=== PATIENT | female | born 1945 | race Caucasian/White ===

== ENCOUNTER 2017-09-15 08:42 | Outpatient (CLI) | payer MEDICARE, BC ==
[2017-09-15 09:21] LABS: BASOPHILS # (AUTO) 0.1 X10'3 (0-0.2); EOSINOPHILS # (AUTO) 0.1 X10'3 (0-0.9); EOSINOPHILS % (AUTO) 1.5 % (0-6); HEMATOCRIT 43.4 % (35.0-45.0); HEMOGLOBIN 14.8 g/dl (12.0-16.0); LYMPHOCYTES # (AUTO) 2.1 X10'3 (1.1-4.8); LYMPHOCYTES % (AUTO) 26.5 % (21-51); MEAN CORPUSCULAR HEMOGLOBIN 31.6 PG (27.0-31.0); MEAN CORPUSCULAR VOLUME 92.9 FL (78-98); MEAN PLATELET VOLUME 7.1 FL (7.4-10.4); MONOCYTES # (AUTO) 0.4 X10'3 (0-0.9); MONOCYTES % (AUTO) 5.6 % (2-12); NEUTROPHILS # (AUTO) 5.2 X10'3 (1.8-7.7); NEUTROPHILS % (AUTO) 65.4 % (42-75); PLATELET COUNT 350 X10'3 (140-440); RED BLOOD COUNT 4.67 X10'6 (4.20-5.60); WHITE BLOOD COUNT 7.9 X10'3 (4.5-11.0)
[2017-09-15 09:22] LABS: CLARITY,URINE CLEAR (Clear); COLOR,URINE YELLOW (Yellow); GLUCOSE, URINE NEGATIVE (Neg); KETONES,URINE NEGATIVE (Neg); LEUKOCYTE ESTERASE ,URINE NEGATIVE (Neg); NITRITES, URINE NEGATIVE (Neg); OCCULT BLOOD,URINE NEGATIVE (Neg); PH,URINE 6.5 (4.8-8.0); PROTEIN,URINE NEGATIVE (Neg); UROBILINOGEN,URINE 0.2 E.U/dL (0.2-1.0)
[2017-09-15 09:23] LABS: UA COLLECTION TYPE CLN CATCH MIDSTREAM
[2017-09-15 09:41] LABS: PROTHROMBIN TIME 10.2 SECONDS (9.0-12.0)
[2017-09-15 09:48] LABS: ALANINE AMINOTRANSFERASE 28 U/L (12-78); ALBUMIN 4.3 G/DL (3.4-5.0); ALBUMIN/GLOBULIN RATIO 1.2 (1.1-1.5); ALKALINE PHOSPHATASE 77 IU/L (46-116); ANION GAP 9 (8-16); ASPARTATE AMINO TRANSFERASE 19 U/L (10-37); BILIRUBIN,TOTAL 0.5 MG/DL (0.1-1.0); BLOOD UREA NITROGEN 14 MG/DL (7-18); BUN/CREATININE RATIO 22.6 (6.6-38.0); CHLORIDE 102 MMOL/L (99-107); CREATININE 0.62 MG/DL (0.40-0.90); GLUCOSE 100 MG/DL (70-104); SODIUM 139 MMOL/L (135-145); TOTAL CARBON DIOXIDE 28.5 MMOL/L (24-32); TOTAL PROTEIN 7.8 G/DL (6.4-8.2); eGFR > 90 ML/MIN
[2017-09-15 09:50] LABS: CALCIUM 9.4 MG/DL (8.5-10.1)
== END 2017-09-15 23:59 | disposition home or self-care (01) ==
LOC: LAB 08:42
PROVIDERS: ATTEND Specialist
DX: Z01.818 Encounter for other preprocedural examination (principal); Z51.81 Encounter for therapeutic drug level monitoring; N39.0 Urinary tract infection, site not specified
CPT/HCPCS: 36415; 80053; 81003; 85025; 85610; 87070

== ENCOUNTER 2017-09-29 05:25 | Inpatient (IN) | payer MEDICARE, BC ==
[2017-09-29] VITALS (18 sets, daily range): BP systolic 95–153; BP diastolic 46–65
[~2017-09-29] VITALS: Ht 160 cm; Wt 59.7 kg
[~2017-09-29 05:25] MED LIST: CALC-491 PO; CHOL10008 PO; CYAN100T12; DOCU-28 PO; ringers solution, lacted 1,000 ML IV SCH
[2017-09-29] MEDS ORDERED: oxyCODONE SR 10mg (sust. release) tab PO ONE (05:30)
[2017-09-29] MEDS ORDERED: famotidine 20mg tablet PO ONE (05:30)
[2017-09-29] MEDS ORDERED: tranexamic acid inj. 1,000 MG in normal saline 100ml IV soln 90 ML IV ONE (05:30)
[2017-09-29] MEDS ORDERED: cefazolin/dext.iso 2gm/50ml 100 ML IV ONE (05:30)
[2017-09-29] MEDS ORDERED: gabapentin 300mg capsule PO ONE (05:30)
[2017-09-29] MEDS ORDERED: LIDOcaine 1% (10mg/ml) 2ml vial ONE (06:27)
[2017-09-29] MEDS ORDERED: ROPIVAcaine 0.5% (5mg/ml) 30ml vial ONE (06:33)
[2017-09-29] MEDS ORDERED: bacitracin inj 150,000 UNIT in sodium chloride irrig. sol 3,000 ML IR ONE (07:00)
[2017-09-29] MEDS ORDERED: BUPIVAcaine/PF 7.5mg/ml (0.75%) 10ml vial ONE (07:19)
[2017-09-29] MEDS ORDERED: midazolam 2 mg/2 ml injection ONE ×2 (07:21→07:22)
[2017-09-29] MEDS ORDERED: fentaNYL/PF 50MCG/1 ML 2ML syringe ONE (07:21)
[2017-09-29] MEDS ORDERED: MORPHINE SULFATE/PF 0.5 MG/ML 10ML AMPUL ONE (07:21)
[2017-09-29] MEDS ORDERED: propofol inj 20 ML IV ONE (07:38)
[2017-09-29] MEDS ORDERED: LIDOcaine 2% (20mg/ml) 5ml vial ONE (07:38)
[2017-09-29] MEDS ORDERED: ringers solution, lacted 1,000 ML IV SCH (08:16)
[2017-09-29] MEDS ORDERED: naloxone 2mg/2ml inj 1.2 MG in normal saline 500ml IV soln 500 ML IV PRN (08:16)
[2017-09-29] MEDS ORDERED: morphine 2 MG/ML inj. syringe IV PRN (08:20)
[2017-09-29] MEDS ORDERED: HYDROmorphone 1 mg/ml syringe IV PRN ×2 (08:20→09:30)
[2017-09-29] MEDS ORDERED: ondansetron/PF 4mg/2ml inj IV PRN ×3 (08:20→09:30)
[2017-09-29] MEDS ORDERED: diphenhydrAMINE 50 mg/ml inj IV PRN (08:20)
[2017-09-29] MEDS ORDERED: phenylephrine 10mg/ml inj IV ONE (08:51)
[2017-09-29] MEDS ORDERED: ePHEDrine 50MG/ML INJ. ONE (08:51)
[2017-09-29] MEDS ORDERED: magnesium hydroxide 30ml (MOM) UD suspension PO PRN (09:30)
[2017-09-29] MEDS ORDERED: diphenhydrAMINE 25mg capsule PO PRN ×2 (09:30)
[2017-09-29] MEDS ORDERED: bisacodyl 10mg suppository rectal RC PRN (09:30)
[2017-09-29] MEDS ORDERED: oxyCODONE IR 5mg (immed. release) tablet PO PRN (09:30)
[2017-09-29] MEDS: gabapentin 300mg capsule PO SCH ×2 (12:58→20:58)
[2017-09-29] MEDS: potassium cl 20mEq in 1/2 NS 1,000 ML IV SCH ×3 (12:59→21:00)
[2017-09-29] MEDS: oxyCODONE IR 5mg (immed. release) tablet PO PRN (14:59)
[2017-09-29] MEDS: cefazolin 1gm/NS 100mL 100 ML IV SCH (16:17)
[2017-09-29] MEDS: lactobacillus rhamnosus 10,000 MMU CELLS/CAPSULE PO SCH (18:07)
[2017-09-29] MEDS: ascorbic acid 500mg tablet PO SCH (20:59)
[2017-09-29] MEDS: celeCOXIB 100mg capsule PO SCH (20:59)
[2017-09-29] MEDS: sennosides 8.6mg tablet PO SCH (20:59)
[2017-09-30] MEDS: cefazolin 1gm/NS 100mL 100 ML IV SCH (00:26)
[2017-09-30 03:20] VITALS: BP 108/56
[2017-09-30] MEDS: oxyCODONE IR 5mg (immed. release) tablet PO PRN ×3 (04:07→16:13)
[2017-09-30] MEDS: potassium cl 20mEq in 1/2 NS 1,000 ML IV SCH ×2 (04:11→17:27)
[2017-09-30 06:43] LABS: BASOPHILS % (AUTO) 0.5 % (0-1); EOSINOPHILS # (AUTO) 0.2 X10'3 (0-0.9); EOSINOPHILS % (AUTO) 2.1 % (0-6); HEMATOCRIT 34.9 % (35.0-45.0); LYMPHOCYTES # (AUTO) 1.4 X10'3 (1.1-4.8); LYMPHOCYTES % (AUTO) 18.2 % (21-51); MEAN CORPUSCULAR HEMOGLOBIN 31.4 PG (27.0-31.0); MEAN CORPUSCULAR HGB CONC 34.3 % (33.0-36.5); MEAN CORPUSCULAR VOLUME 91.4 FL (78-98); MEAN PLATELET VOLUME 6.9 FL (7.4-10.4); MONOCYTES # (AUTO) 0.7 X10'3 (0-0.9); MONOCYTES % (AUTO) 8.6 % (2-12); NEUTROPHILS # (AUTO) 5.6 X10'3 (1.8-7.7); NEUTROPHILS % (AUTO) 70.6 % (42-75); PLATELET COUNT 211 X10'3 (140-440); RED BLOOD COUNT 3.82 X10'6 (4.20-5.60); WHITE BLOOD COUNT 7.9 X10'3 (4.5-11.0)
[2017-09-30 06:45] VITALS: BP 116/59
[2017-09-30 06:53] LABS: INR 1.5 INR; PROTHROMBIN TIME 15.1 SECONDS (9.0-12.0)
[2017-09-30 06:54] LABS: ANION GAP 6 (8-16); CHLORIDE 97 MMOL/L (99-107); POTASSIUM 4.1 MMOL/L (3.5-5.1); SODIUM 130 MMOL/L (135-145); TOTAL CARBON DIOXIDE 27.5 MMOL/L (24-32)
[2017-09-30] MEDS ORDERED: warfarin 3mg tablet PO ONE (07:00)
[2017-09-30] MEDS: docusate sod 100mg capsule PO SCH (07:44)
[2017-09-30] MEDS: celeCOXIB 100mg capsule PO SCH ×2 (07:44→20:17)
[2017-09-30] MEDS: lactobacillus rhamnosus 10,000 MMU CELLS/CAPSULE PO SCH ×2 (07:44→17:49)
[2017-09-30] MEDS: ascorbic acid 500mg tablet PO SCH ×2 (07:45→20:17)
[2017-09-30] MEDS: multivitamins, therapeutics tablet PO SCH (07:45)
[2017-09-30] MEDS: gabapentin 300mg capsule PO SCH ×3 (07:47→20:18)
[2017-09-30 11:00] VITALS: BP 138/57
[2017-09-30 14:57] VITALS: BP 125/58
[2017-09-30 18:00] VITALS: BP 121/56
[2017-09-30] MEDS: sennosides 8.6mg tablet PO SCH (20:18)
[2017-09-30 22:00] VITALS: BP 122/56
[2017-10-01] MEDS: potassium cl 20mEq in 1/2 NS 1,000 ML IV SCH (01:27)
[2017-10-01] MEDS: oxyCODONE IR 5mg (immed. release) tablet PO PRN ×4 (02:26→17:05)
[2017-10-01 05:00] VITALS: BP 132/64
[2017-10-01 06:32] LABS: BASOPHILS % (AUTO) 0.4 % (0-1); EOSINOPHILS # (AUTO) 0.2 X10'3 (0-0.9); EOSINOPHILS % (AUTO) 2.1 % (0-6); HEMATOCRIT 35.7 % (35.0-45.0); HEMOGLOBIN 12.6 g/dl (12.0-16.0); LYMPHOCYTES # (AUTO) 1.6 X10'3 (1.1-4.8); LYMPHOCYTES % (AUTO) 18.9 % (21-51); MEAN CORPUSCULAR HGB CONC 35.4 % (33.0-36.5); MEAN CORPUSCULAR VOLUME 90.6 FL (78-98); MEAN PLATELET VOLUME 7.2 FL (7.4-10.4); MONOCYTES # (AUTO) 0.7 X10'3 (0-0.9); NEUTROPHILS % (AUTO) 70.6 % (42-75); PLATELET COUNT 222 X10'3 (140-440); RED BLOOD COUNT 3.94 X10'6 (4.20-5.60); RED CELL DISTRIBUTION WIDTH 13.4 % (11.5-14.5); WHITE BLOOD COUNT 8.5 X10'3 (4.5-11.0)
[2017-10-01 06:45] LABS: INR 1.4 INR; PROTHROMBIN TIME 14.4 SECONDS (9.0-12.0)
[2017-10-01] MEDS: lactobacillus rhamnosus 10,000 MMU CELLS/CAPSULE PO SCH ×2 (07:35→17:05)
[2017-10-01] MEDS: multivitamins, therapeutics tablet PO SCH (07:36)
[2017-10-01] MEDS: docusate sod 100mg capsule PO SCH (07:36)
[2017-10-01] MEDS: gabapentin 300mg capsule PO SCH ×3 (07:36→20:10)
[2017-10-01] MEDS: celeCOXIB 100mg capsule PO SCH ×2 (07:36→20:10)
[2017-10-01] MEDS: ascorbic acid 500mg tablet PO SCH ×2 (07:36→20:10)
[2017-10-01 10:00] VITALS: BP 100/51
[2017-10-01] MEDS ORDERED: warfarin 5mg tablet PO ONE (10:00)
[2017-10-01 18:00] VITALS: BP 132/59
[2017-10-01] MEDS: sennosides 8.6mg tablet PO SCH (20:10)
[2017-10-01 22:00] VITALS: BP 120/67
[2017-10-02 05:00] VITALS: BP 123/60
[2017-10-02] MEDS: oxyCODONE IR 5mg (immed. release) tablet PO PRN ×2 (06:21→10:33)
[2017-10-02 06:29] LABS: BASOPHILS % (AUTO) 0.2 % (0-1); EOSINOPHILS # (AUTO) 0.2 X10'3 (0-0.9); EOSINOPHILS % (AUTO) 2.6 % (0-6); HEMATOCRIT 34.5 % (35.0-45.0); HEMOGLOBIN 12.1 g/dl (12.0-16.0); LYMPHOCYTES # (AUTO) 1.3 X10'3 (1.1-4.8); LYMPHOCYTES % (AUTO) 14.2 % (21-51); MEAN CORPUSCULAR HGB CONC 35.1 % (33.0-36.5); MEAN CORPUSCULAR VOLUME 91.1 FL (78-98); MEAN PLATELET VOLUME 7.4 FL (7.4-10.4); MONOCYTES # (AUTO) 0.8 X10'3 (0-0.9); MONOCYTES % (AUTO) 8.4 % (2-12); NEUTROPHILS # (AUTO) 6.7 X10'3 (1.8-7.7); NEUTROPHILS % (AUTO) 74.6 % (42-75); PLATELET COUNT 229 X10'3 (140-440); RED BLOOD COUNT 3.78 X10'6 (4.20-5.60); RED CELL DISTRIBUTION WIDTH 13.1 % (11.5-14.5)
[2017-10-02 06:40] LABS: INR 1.6 INR; PROTHROMBIN TIME 16.7 SECONDS (9.0-12.0)
[2017-10-02] MEDS ORDERED: warfarin 3mg tablet PO ONE (07:40)
[2017-10-02] MEDS ORDERED: ASPI-1264 PO (07:42)
[2017-10-02] MEDS ORDERED: WALKERFR (07:42)
[2017-10-02] MEDS: lactobacillus rhamnosus 10,000 MMU CELLS/CAPSULE PO SCH (08:03)
[2017-10-02] MEDS: multivitamins, therapeutics tablet PO SCH (08:04)
[2017-10-02] MEDS: ascorbic acid 500mg tablet PO SCH (08:04)
[2017-10-02] MEDS: gabapentin 300mg capsule PO SCH (08:04)
[2017-10-02] MEDS: docusate sod 100mg capsule PO SCH (08:04)
[2017-10-02] MEDS: celeCOXIB 100mg capsule PO SCH (08:04)
== END 2017-10-02 10:50 | disposition home health service (06) | DRG 470 ==
LOC: PAS IN 05:25 → EDSTATUS 07:30 → ORTHO 4S 10:30
PROVIDERS: ADMIT Specialist; ATTEND Specialist
PROC: 0SRB02Z Replacement of Left Hip Joint with Metal on Polyethylene Synthetic Substitute, Open Approach (ICD-10-PCS; principal; 2017-09-29 07:16)
DX: M16.12 Unilateral primary osteoarthritis, left hip (principal); Q65.89 Other specified congenital deformities of hip; Z88.6 Allergy status to analgesic agent; Z90.710 Acquired absence of both cervix and uterus
CPT/HCPCS: 36415; 73502; 80051; 85025; 85610; 86885; 86900; 86901; 97110; 97116; 97162; 97530; A4565; A6253; A6449; A6455; A7000; C1758; C1776; J0690; J2001; J2250; J2274; J2370; J2704; J2795; J3010; J3490; J7030; J7120

== ENCOUNTER 2018-09-21 05:11 | Inpatient (IN) | payer MEDICARE, BC ==
[2018-09-09 12:40] LABS: BASOPHILS # (AUTO) 0.1 X10'3 (0-0.2); BASOPHILS % (AUTO) 0.7 % (0-1); EOSINOPHILS # (AUTO) 0.1 X10'3 (0-0.9); EOSINOPHILS % (AUTO) 1.2 % (0-6); LYMPHOCYTES % (AUTO) 25.4 % (21-51); MEAN CORPUSCULAR HEMOGLOBIN 31.3 PG (27.0-31.0); MEAN CORPUSCULAR HGB CONC 33.3 % (33.0-36.5); MEAN CORPUSCULAR VOLUME 93.9 FL (78-98); MEAN PLATELET VOLUME 7.5 FL (7.4-10.4); MONOCYTES # (AUTO) 0.4 X10'3 (0-0.9); MONOCYTES % (AUTO) 5.5 % (2-12); NEUTROPHILS # (AUTO) 5.3 X10'3 (1.8-7.7); NEUTROPHILS % (AUTO) 67.2 % (42-75); PRE OP HEMATOCRIT 42.3 % (35.0-45.0); PRE OP HEMOGLOBIN 14.1 g/dL (12.0-16.0); PRE OP PLATELET COUNT 366 X10'3 (140-440); RED BLOOD COUNT 4.51 X10'6 (4.20-5.60); RED CELL DISTRIBUTION WIDTH 13.2 % (11.5-14.5)
[2018-09-09 12:42] LABS: CLARITY,URINE CLEAR (Clear); COLOR,URINE STRAW (Yellow); GLUCOSE, URINE NEGATIVE (Neg); KETONES,URINE NEGATIVE (Neg); LEUKOCYTE ESTERASE ,URINE NEGATIVE (Neg); NITRITES, URINE NEGATIVE (Neg); OCCULT BLOOD,URINE NEGATIVE (Neg); PROTEIN,URINE NEGATIVE (Neg); UROBILINOGEN,URINE 0.2 E.U/dL (0.2-1.0)
[2018-09-09 12:44] LABS: UA COLLECTION TYPE CLN CATCH MIDSTREAM
[2018-09-09 12:56] LABS: ALBUMIN 4.2 G/DL (3.4-5.0); ALBUMIN/GLOBULIN RATIO 1.2 (1.1-1.5); ALKALINE PHOSPHATASE 71 IU/L (46-116); BLOOD UREA NITROGEN 19 MG/DL (7-18); CALCIUM 9.1 MG/DL (8.5-10.1); CHLORIDE 100 MMOL/L (99-107); CREATININE 0.73 MG/DL (0.40-0.90); PRE OP ALT 27 U/L (30-65); PRE OP ANION GAP 9 (8-16); PRE OP AST 16 U/L (10-37); PRE OP BILIRUB, TOTAL 0.4 MG/DL (0.0-1.0); PRE OP GLUCOSE 95 MG/DL (70-104); PRE OP POTASSIUM 4.3 MMOL/L (3.4-5.1); PRE OP SODIUM 137 MMOL/L (135-145); TOTAL CARBON DIOXIDE 27.7 MMOL/L (24-32); TOTAL PROTEIN 7.7 G/DL (6.4-8.2); eGFR 78 ML/MIN
[2018-09-09 13:31] LABS: PRE OP PROTIME 10.4 SECONDS (9.0-12.0)
[2018-09-21] VITALS (18 sets, daily range): BP systolic 102–138; BP diastolic 49–74
[~2018-09-21] VITALS: Ht 160 cm; Wt 60.5 kg
[~2018-09-21 05:11] MED LIST changes: +ANTI1CAP5 PO; +ASCO500C15 PO; +ASPI-529 PO; +CRAN1CAP2 PO; -CYAN100T12; +CYAN100T12 PO; +FLAX100031 PO; +RED600TA PO; +UBID1CAP54 PO; +bacitracin inj 150,000 UNIT in sodium chloride irrig. sol 3,000 ML IR ONE
[2018-09-21] MEDS ORDERED: VANCOMYCIN INJ 1000 MG in NORMAL SALINE 250ml IV.SOLN IV ONE (05:30)
[2018-09-21] MEDS ORDERED: cefazolin/dext.iso 2gm/100 ML IV ONE (05:30)
[2018-09-21] MEDS ORDERED: gabapentin 300mg capsule PO ONE (05:30)
[2018-09-21] MEDS ORDERED: tranexamic acid inj. 1,500 MG in normal saline 100ml IV soln 100 ML IV ONE (05:30)
[2018-09-21] MEDS ORDERED: oxyCODONE SR 10mg (sust. release) tab PO ONE (05:30)
[2018-09-21] MEDS ORDERED: celeCOXIB 100mg capsule PO ONE (05:30)
[2018-09-21] MEDS ORDERED: famotidine 20mg tablet PO ONE (05:30)
[2018-09-21] MEDS ORDERED: ROPIVAcaine 0.5% (5mg/ml) 30ml vial ONE ×2 (06:56→07:10)
[2018-09-21] MEDS ORDERED: cloNIDine hcl/PF 100mcg/ml inj ONE (07:10)
[2018-09-21] MEDS ORDERED: tetracaine 1% (10mg/ml) pres. free inj. ONE (07:10)
[2018-09-21] MEDS ORDERED: morphine /PF 1mg/ml 10ml inj. ONE (07:14)
[2018-09-21] MEDS ORDERED: MIDAZolam 1mg/ml 10ml vial ONE (07:14)
[2018-09-21] MEDS ORDERED: dexamethasone sod phosphate 4mg/ml inj. ONE (07:36)
[2018-09-21] MEDS ORDERED: propofol inj 20 ML IV ONE (07:36)
[2018-09-21] MEDS ORDERED: ondansetron/PF 4mg/2ml inj ONE (07:36)
[2018-09-21] MEDS ORDERED: ringers solution, lacted 1,000 ML IV SCH (08:05)
[2018-09-21] MEDS ORDERED: labetalol 20mg/4ml (5mg/ml) syringe IV PRN (08:05)
[2018-09-21] MEDS ORDERED: hydrALAZINE 20mg/ml inj. IV PRN (08:05)
[2018-09-21] MEDS ORDERED: morphine 4 MG/ML inj SYRINge IV PRN ×2 (08:05)
[2018-09-21] MEDS ORDERED: ondansetron/PF 4mg/2ml inj IV PRN ×3 (08:05→09:35)
[2018-09-21] MEDS ORDERED: fentaNYL/PF 50MCG/1 ML 2ML syringe IV PRN ×2 (08:05)
[2018-09-21] MEDS ORDERED: diphenhydrAMINE 50 mg/ml inj IV PRN (08:10)
[2018-09-21] MEDS ORDERED: ePHEDrine 50MG/ML INJ. ONE (08:12)
[2018-09-21] MEDS ORDERED: bisacodyl 10mg suppository rectal RC PRN (09:35)
[2018-09-21] MEDS ORDERED: acetaminophen 325mg tablet PO PRN (09:35)
[2018-09-21] MEDS ORDERED: diphenhydrAMINE 25mg capsule PO PRN ×2 (09:35)
[2018-09-21] MEDS ORDERED: HYDROmorphone 1 mg/ml syringe IV PRN (09:35)
[2018-09-21] MEDS ORDERED: magnesium hydroxide 30ml (MOM) UD suspension PO PRN (09:35)
--- NOTE | 2018-09-21 09:38 | NUR ---
Received from OR via , accompanied by Anesthesiologist DR ESCAMILLA and report given by Anesthesiolgist. AWAKE AND EDWARD PAIN. VITALS STABLE. DRESSING DI. SENSATION AT MID CHEST. ELY WITH CLEAR URINE.
[2018-09-21] MEDS ORDERED: oxyCODONE/APAP 5-325mg tablet PO PRN ×2 (09:40)
--- NOTE | 2018-09-21 10:29 | NUR ---
received report from faye nye
--- NOTE | 2018-09-21 10:38 | NUR ---
Report called to receiving nurse. Transferred via BED Belongings . Special Issues communicated to receiving nurse. AWAKE AND ORIENTED. VITALS STABLE. DRESSING DI. EDWARD PAIN. TO ORTHO RM [id number] AT THIS TIME.
--- NOTE | 2018-09-21 10:40 | NUR ---
PT ARRIVED ON FLOOR IN ORTHO BED AWAKE
[2018-09-21] MEDS: gabapentin 300mg capsule PO SCH ×2 (12:22→20:15)
[2018-09-21] MEDS: potassium cl 20mEq in 1/2 NS 1,000 ML IV SCH ×3 (13:12→20:24)
[2018-09-21] MEDS: ceFAZolin 1GM/D5W- ADD-VANTAGE 50 ML IV SCH ×2 (15:24→23:13)
--- NOTE | 2018-09-21 18:13 | NUR ---
GAVE REPORT TO DHRUV JUAREZ
[2018-09-21] MEDS: lactobacillus rhamnosus 10,000 MMU CELLS/CAPSULE PO SCH (20:14)
[2018-09-21] MEDS: sennosides 8.6mg tablet PO SCH (20:14)
[2018-09-22 02:00] VITALS: BP 116/50
[2018-09-22] MEDS ORDERED: oxyCODONE IR 5mg (immed. release) tablet PO PRN (04:35)
[2018-09-22] MEDS: oxyCODONE IR 5mg (immed. release) tablet PO PRN ×2 (05:03→08:57)
[2018-09-22 05:58] LABS: BASOPHILS % (AUTO) 0.2 % (0-1); EOSINOPHILS # (AUTO) 0.1 X10'3 (0-0.9); EOSINOPHILS % (AUTO) 1.2 % (0-6); HEMATOCRIT 34.4 % (35.0-45.0); HEMOGLOBIN 11.6 g/dl (12.0-16.0); LYMPHOCYTES # (AUTO) 2.5 X10'3 (1.1-4.8); LYMPHOCYTES % (AUTO) 20.1 % (21-51); MEAN CORPUSCULAR HEMOGLOBIN 31.9 PG (27.0-31.0); MEAN CORPUSCULAR HGB CONC 33.6 % (33.0-36.5); MEAN CORPUSCULAR VOLUME 95.1 FL (78-98); MEAN PLATELET VOLUME 7.5 FL (7.4-10.4); MONOCYTES # (AUTO) 0.8 X10'3 (0-0.9); MONOCYTES % (AUTO) 6.8 % (2-12); NEUTROPHILS # (AUTO) 8.9 X10'3 (1.8-7.7); NEUTROPHILS % (AUTO) 71.7 % (42-75); PLATELET COUNT 208 X10'3 (140-440); RED BLOOD COUNT 3.62 X10'6 (4.20-5.60); RED CELL DISTRIBUTION WIDTH 13.8 % (11.5-14.5); WHITE BLOOD COUNT 12.5 X10'3 (4.5-11.0)
[2018-09-22 06:00] VITALS: BP 132/47
[2018-09-22 06:07] LABS: ANION GAP 9 (8-16); CHLORIDE 101 MMOL/L (99-107); SODIUM 134 MMOL/L (135-145); TOTAL CARBON DIOXIDE 24.5 MMOL/L (24-32)
--- NOTE | 2018-09-22 06:24 | NUR ---
Problems reprioritized. Patient report given, questions answered & plan of care reviewed with DHRUV CASAS.
--- NOTE | 2018-09-22 06:30 | NUR ---
Received report from Lesley BARTLETT, assumed care of patient.
--- NOTE | 2018-09-22 06:32 | NUR ---
Problems reprioritized. Patient report given, questions answered & plan of care reviewed with DHRUV WEINBERG.
[2018-09-22 06:39] LABS: INR 1.6 INR; PROTHROMBIN TIME 15.6 SECONDS (9.0-12.0)
[2018-09-22] MEDS: lactobacillus rhamnosus 10,000 MMU CELLS/CAPSULE PO SCH ×2 (07:27→19:19)
[2018-09-22] MEDS: gabapentin 300mg capsule PO SCH ×3 (07:28→19:20)
--- NOTE | 2018-09-22 08:37 | NUR ---
Report given to Luz Elena BARTLETT.
--- NOTE | 2018-09-22 08:46 | NUR ---
received report from Jennifer BARTLETT
[2018-09-22] MEDS: potassium cl 20mEq in 1/2 NS 1,000 ML IV SCH ×2 (09:35→16:14)
[2018-09-22] MEDS ORDERED: warfarin 3mg tablet PO ONE (10:00)
--- NOTE | 2018-09-22 12:33 | NUR ---
Joint replacement consult: Pt seen by SUAD for written/verbal high protein ed. SUAD reviewed high protein needs for wound healing, immune strength, high protein foods, and protein supplementation options. SUAD contact information provided in case of further questions. Agrees to julia AVELAR; SUAD d/w dietary. Addendum: 09/22/18 at [address] Amended: Links added.
[2018-09-22] MEDS ORDERED: ALPRAZolam 0.5mg tablet PO ONE (17:45)
[2018-09-22 18:00] VITALS: BP 184/65
--- NOTE | 2018-09-22 18:15 | NUR ---
CALLED DR ABBOTT ABOUT PT CONDITION- FLUSHED SKIN SHAKING HANDS AND INFILTRATED IV SITE REDNESS AND SWELLING. NEW ORDERS GIVEN FOR XANAX .5MG X1. MEDICATION AND HOT COMPRESS GIVEN TO PT. WILL CONTINUE TO MONITOR.
[2018-09-22] MEDS: celeCOXIB 100mg capsule PO SCH (19:20)
[2018-09-22] MEDS: sennosides 8.6mg tablet PO SCH (19:23)
[2018-09-22 22:00] VITALS: BP 172/65
[2018-09-23] MEDS: potassium cl 20mEq in 1/2 NS 1,000 ML IV SCH (01:35)
--- NOTE | 2018-09-23 04:59 | NUR ---
informed Nalini Heller PATIENT ACCESS DIRECTOR about pt's pain level and unwilling to take oxy. only other med is dilaudid IV. suggested to give celebrex early this am when removal of lion and drain.
[2018-09-23] MEDS: celeCOXIB 100mg capsule PO SCH (05:38)
[2018-09-23 06:00] VITALS: BP 169/76
--- NOTE | 2018-09-23 06:00 | NUR ---
Patient in room ORTHO 4021. I have received report from Lee Ann BARTLETT and had the opportunity to ask questions and assume patient care.
[2018-09-23 07:18] LABS: BASOPHILS % (AUTO) 0.3 % (0-1); EOSINOPHILS # (AUTO) 0.1 X10'3 (0-0.9); EOSINOPHILS % (AUTO) 0.4 % (0-6); HEMATOCRIT 40.1 % (35.0-45.0); HEMOGLOBIN 13.5 g/dl (12.0-16.0); LYMPHOCYTES # (AUTO) 1.6 X10'3 (1.1-4.8); LYMPHOCYTES % (AUTO) 13.5 % (21-51); MEAN CORPUSCULAR HEMOGLOBIN 31.6 PG (27.0-31.0); MEAN CORPUSCULAR HGB CONC 33.7 % (33.0-36.5); MEAN CORPUSCULAR VOLUME 93.8 FL (78-98); MEAN PLATELET VOLUME 7.9 FL (7.4-10.4); MONOCYTES # (AUTO) 0.9 X10'3 (0-0.9); MONOCYTES % (AUTO) 7.4 % (2-12); NEUTROPHILS # (AUTO) 9.1 X10'3 (1.8-7.7); NEUTROPHILS % (AUTO) 78.4 % (42-75); PLATELET COUNT 218 X10'3 (140-440); RED BLOOD COUNT 4.28 X10'6 (4.20-5.60); RED CELL DISTRIBUTION WIDTH 13.6 % (11.5-14.5); WHITE BLOOD COUNT 11.7 X10'3 (4.5-11.0)
[2018-09-23 07:44] LABS: INR 1.6 INR; PROTHROMBIN TIME 15.4 SECONDS (9.0-12.0)
[2018-09-23] MEDS ORDERED: ASPI-1264 PO (07:47)
[2018-09-23] MEDS: gabapentin 300mg capsule PO SCH ×2 (08:00→13:00)
[2018-09-23] MEDS: lactobacillus rhamnosus 10,000 MMU CELLS/CAPSULE PO SCH (08:00)
[2018-09-23] MEDS ORDERED: acetaminophen 325mg tablet PO PRN (09:35)
[2018-09-23 10:00] VITALS: BP 160/74
[2018-09-23] MEDS ORDERED: warfarin 3mg tablet PO ONE (10:00)
[2018-09-23] MEDS ORDERED: metoclopramide 5 mg/ml inj IV PRN (10:50)
[2018-09-23] MEDS ORDERED: calcium carbonate 500mg chew tablet PO PRN (10:50)
--- NOTE | 2018-09-23 15:00 | NUR ---
Patient stable for discharge home with . All instructions given to patient and questions answered. Patient was discharged at 1430
== END 2018-09-23 14:30 | disposition home health service (06) | DRG 470 ==
LOC: PAS IN 05:11 → EDSTATUS 07:30 → ORTHO 4S 10:40
PROVIDERS: ADMIT Specialist; ATTEND Specialist
PROC: 3E0T3BZ Introduction of Anesthetic Agent into Peripheral Nerves and Plexi, Percutaneous Approach (ICD-10-PCS; 2018-09-21)
PROC: 0SRC0J9 Replacement of Right Knee Joint with Synthetic Substitute, Cemented, Open Approach (ICD-10-PCS; principal; 2018-09-21 07:14)
DX: M17.11 Unilateral primary osteoarthritis, right knee (principal); D62 Acute posthemorrhagic anemia; M21.061 Valgus deformity, not elsewhere classified, right knee; Z96.642 Presence of left artificial hip joint; Z90.710 Acquired absence of both cervix and uterus; Z79.899 Other long term (current) drug therapy; Z79.82 Long term (current) use of aspirin
CPT/HCPCS: 36415; 73560; 80051; 80053; 81003; 82948; 85025; 85610; 85730; 87070; 97110; 97116; 97161; 97530; A6449; A6455; A7000; C1713; C1758; C1776; G0378; J0690; J0735; J1100; J1170; J2250; J2274; J2405; J2704; J2765; J2795; J3370; J7030; J7120; Q0163

== ENCOUNTER 2018-12-03 17:47 | Emergency (ER) | payer MEDICARE, BC ==
[~2018-12-03] VITALS: Ht 160 cm; Wt 59.1 kg
[~2018-12-03 17:47] MED LIST changes: -ASPI-529 PO; -bacitracin inj 150,000 UNIT in sodium chloride irrig. sol 3,000 ML IR ONE; -ringers solution, lacted 1,000 ML IV SCH
[2018-12-03] MEDS ORDERED: IBUP-1984 PO (21:39)
[2018-12-03 21:54] VITALS: BP 157/80
== END 2018-12-03 21:59 | disposition home or self-care (01) ==
LOC: ER 17:47
DX: M79.604 Pain in right leg (principal); R60.0 Localized edema; Z88.6 Allergy status to analgesic agent; Z79.899 Other long term (current) drug therapy; Z98.890 Other specified postprocedural states
CPT/HCPCS: 93971; 99284

== ENCOUNTER 2025-05-16 09:15 | Outpatient (CLI) | payer MEDICARE, BC ==
[~2025-05-16 09:15] MED LIST changes: -ASCO500C15 PO; +ASCO500C18 PO; +ASPI-1397 PO; +ATOR40TA PO; -CALC-491 PO; +CARV3.123 PO; +CHOL100053 PO; -CHOL10008 PO; +CLOP75TA34 PO; -CRAN1CAP2 PO; -CYAN100T12 PO; +CYAN50005 PO; -DOCU-28 PO; +LOSA-415 PO; +MAGN500C4 PO; -RED600TA PO; +TURM500C4 PO; +ZINC220T3 PO
[2025-05-16 09:52] LABS: CREATININE 0.58 MG/DL (0.40-0.90); TOTAL CARBON DIOXIDE 27.6 MMOL/L (24-32); eGFR > 90 ML/MIN
--- NOTE | 2025-05-16 11:42 | RADIOLOGY REPORT ---
Exam: CT CTA CAROTIDS/VERTEBRALS INDICATION: OCCLUSION AND STENOSIS OF LEFT CAROTID ARTERY EXAM DATE: 05/16/2025 10:01 AM COMPARISON: CATH CAROTID W/WO STENT on DOS: 04/24/25, VASC VL CAROTID on DOS: 11/03/24, CT CTA NECK/HEAD on DOS: 11/03/24, CT CT HEAD on DOS: 11/03/24, MR MRI HEAD on DOS: 03/15/24 TECHNIQUE: CTA neck with intravenous contrast. 3D image postprocessing was performed on a dedicated workstation and images were used for interpretation and reporting. RADIATION DOSE: Angio: CTDIvol: 16.28 mGy, DLP: 486.6 mGy*cm FINDINGS: CTA neck: The visualized thoracic aortic arch and proximal great vessels are unremarkable. The left common, internal and external carotid arteries are within normal limits. The right common, internal and external carotid arteries are within normal limits. Left internal carotid artery stent is present and patent. The cervical segments of the right and left vertebral arteries are within normal limits. The limited visualized lung apices are clear. Multilevel degenerative changes of the spine. IMPRESSION: Patent left internal carotid artery stent. CAROTID STENOSIS REFERENCE Distal internal carotid artery diameter as the denominator for stenosis measurement: MILD = <50% stenosis. MODERATE = 50-69% stenosis. SEVERE = 70-89% stenosis. CRITICAL = 90-99% stenosis. OCCLUDED = 100% stenosis.
== END 2025-05-16 23:59 | disposition home or self-care (01) ==
LOC: RAD 09:15
PROVIDERS: ATTEND Nurse Practitioner Family
DX: I65.22 Occlusion and stenosis of left carotid artery (principal); E78.5 Hyperlipidemia, unspecified; M47.812 Spondylosis without myelopathy or radiculopathy, cervical region
CPT/HCPCS: 36415; 70498; 80048; Q9967